=== PATIENT | male | born 1990 | race Caucasian/White ===

== ENCOUNTER 2017-01-12 21:11 | Inpatient (IN) ==
[2017-01-12 21:57] LABS: Bilirubin,Urine Negative (Negative); Blood,Urine Negative (Negative); Clarity,Urine Cloudy (Clear); Color,Urine Yellow (Yellow); Glucose,Urine (UA) Normal (Normal); Ketones,Urine Negative (Negative); Leukocyte Esterase,Urine Negative (Negative); Nitrite,Urine Negative (Negative); PH,Urine 5.5 pH Units (5.0-8.0); Protein,Urine 30 mg/dL (Neg-Trace); Specific Gravity,Urine 1.026 (1.010-1.025); Urobilinogen,Urine Normal (Normal)
[2017-01-12 21:57] LABS: Basophils # 0.1 K/mcL (0.0-0.2); Basophils % 0.6 %; Eosinophils # 0.6 K/mcL (0.0-0.6); Eosinophils % 7.7 %; Hematocrit 45.9 % (37.5-50.1); Hemoglobin 15.5 g/dL (12.9-16.9); Immature Granulocytes % 0.2 % (0-4); Lymphocytes # 2.8 K/mcL (0.6-4.6); Lymphocytes % 33.4 %; Mean Corpuscular HGB Conc 33.8 g/dL (31.6-35.5); Mean Corpuscular Hemoglobin 29.4 pg (28.0-33.3); Mean Corpuscular Volume 87.1 fL (83.0-100.0); Mean Platelet Volume 9.1 fL (9.4-12.4); Monocytes # 0.7 K/mcL (0.0-1.3); Monocytes % 7.9 %; Neutrophils # 4.2 K/mcL (1.6-8.9); Platelet Count 271 K/mcL (140-400); Red Blood Count 5.27 M/mcL (4.19-5.50); Red Cell Distribution Width 11.8 % (11.5-14.5); Segmented Neutrophils % 50.2 %
[2017-01-12 21:59] LABS: Bacteria,Urine None Seen per hpf (None-Few); Hyaline Casts,Urine None Seen per lpf (None-Few); RBC,Urine 0-3 per hpf (0-3); Squamous Epithelial Cell,Urine Many per lpf (None-Few)
[2017-01-12 22:10] LABS: Amphetamine Screen,Urine Negative ng/mL (Cutoff=1000); Barbiturate Screen,Urine Negative ng/mL (Cutoff=200); Benzodiazepines Screen,Urine Negative ng/mL (Cutoff=200); Cannabinoid Screen,Urine Positive ng/mL (Cutoff = 50); Cocaine Screen,Urine Negative ng/mL (Cutoff= 300); Mucus,Urine Moderate (Few); Opiate Screen,Urine Negative ng/mL (Cutoff=300); Phencyclidine Screen,Urine Negative ng/mL (Cutoff=25)
[2017-01-12 22:13] LABS: Sperm,Urine Present
[2017-01-12 22:16] LABS: BUN/Creatinine Ratio 16 (6-26); Blood Urea Nitrogen 13 mg/dL (8-26); Calcium 9.4 mg/dL (8.6-10.8); Carbon Dioxide 27 mEq/L (19-29); Chloride 104 mEq/L (98-109); Glucose 91 mg/dL (70-99); Osmolality,Calculated 292 (280-300); Potassium 3.6 mEq/L (3.5-4.5); Sodium 141 mEq/L (136-145); eGFR For African Americans > 60 (> 60); eGFR For Non-African Americans > 60 (> 60)
[2017-01-12 22:17] LABS: Acetaminophen < 1.0 mcg/mL (10-30); Ethanol < 10 mg/dL (0-10); Salicylate < 5.0 mg/dL (15-30)
--- NOTE | 2017-01-12 23:07 | Emergency Department Note ---
Disposition Clinical Impression: Suicidal ideation Depression Qualifiers: Depression Type: unspecified Qualified Code(s): F32.9 - Major depressive disorder, single episode, unspecified Disposition: Admitted As Inpatient Condition: Fair Psych HPI - General Chief Complaint: ED Psychiatric Symptoms Stated Complaint: SI Time Seen by Provider: 01/12/17 23:01 Source: patient Mode of arrival: private vehicle Limitations: no limitations Nursing Notes Reviewed: Yes Vital Signs Reviewed: Yes - History of Present Illness HPI Narrative: 26-year-old male presents to the emergency department with suicidal and homicidal ideation. Patient also describes depression. Patient states that he has several plans on her himself and others. He denies any recent head injury or trauma. He denies any new medications. Patient has had similar episodes and thought processes in the past. Pt complaint: suicidal ideation If medical clearance, reason: psychiatric condition Onset (ago): day(s) Duration: constant, getting worse History of similar episodes: Yes Improves with: none Worsens with: none Associated Psychiatric Symptoms: suicidal ideation, homicidal ideation, racing thoughts Associated symptoms: Reports: denies other symptoms Traumatic symptoms: denies traumatic injury Treatments prior to arrival: none Self harm or harm to others: admits thoughts of self harm, has plan - Related Data Allergies Allergy/AdvReac Type Severity Reaction Status Date / Time No Known Allergies Allergy Verified 01/12/17 21:21 All systems ED: reviewed and negative except as stated. Constitutional: Denies: fever, chills Cardiovascular: Denies: chest pain Respiratory: Denies: dyspnea Gastrointestinal: Denies: abdominal pain, nausea, vomiting Musculoskeletal: Denies: back pain, neck pain Integumentary: Denies: rash, abrasion, lesions Neurological: Denies: headache Psychiatric: Reports: anxiety, depression, suicidal thoughts, homicidal thoughts. Denies: auditory hallucinations, visual hallucinations Past Medical History - Past Medical History Attestation: Yes The following information was validated with the patient. Source: patient, nursing notes reviewed Medical history: Reports: asthma, other Psychiatric history: Reports: anxiety, depression - Social History Smoking Status: Current some day smoker Smokeless Tobacco Status: No Alcohol use: Reports: occasionally Drug use: Reports: marijuana Physical Exam - General Limitations: no limitations General appearance: alert, in no apparent distress - Head Head exam: atraumatic, normocephalic, normal inspection - Eye Eye exam: Present: normal appearance, PERRL - Neck Neck exam: Present: normal inspection, full ROM, trachea midline - Chest Chest inspection: Present: normal inspection, symmetric chest wall rise - Respiratory Respiratory exam: Present: normal lung sounds bilaterally. Absent: respiratory distress - Cardiovascular Cardiovascular exam: Present: regular rate, normal rhythm, normal heart sounds - Extremities Exam Extremities exam: Present: normal inspection, full ROM. Absent: tenderness, pedal edema - Expanded Lower Extremity Exam Gait: observed and normal - Back Exam Back exam: Present: normal inspection, full ROM. Absent: tenderness - Neurological Exam Neurological exam: Present: alert, oriented X3 - Psychiatric Psychiatric exam: Present: depressed, anxious, flat affect, homicidal ideation, suicidal ideation - Expanded Psychiatric Exam Expanded psych exam: Present: poor eye contact - Skin Skin exam: Present: warm, dry, intact, normal color Course - Reevaluation(s) Reevaluation #1: Patient medically cleared for psychiatric evaluation. No acute distress, resting comfortably on the cot. Time: 23:07 Vital Signs Temperature 98.3 F 01/12/17 21:22 Pulse Rate 89 01/12/17 21:22 Respiratory Rate 16 01/12/17 21:22 Blood Pressure 127/87 01/12/17 21:22 O2 Sat by Pulse Oximetry 100 01/12/17 21:22 Temperature 98.6 F 01/13/17 01:18 Pulse Rate 81 01/13/17 01:18 Respiratory Rate 16 01/13/17 01:18 Blood Pressure 121/85 01/13/17 01:18 O2 Sat by Pulse Oximetry 100 01/12/17 21:22 Oxygen Delivery Oxygen Delivery Room Air Psych - Lab Data Lab results reviewed: Yes I reviewed the patient's lab results. Result diagrams: 01/12/17 21:45 01/12/17 21:45 Lab Results 01/12/17 01/12/17 01/12/17 Range/Units 21:36 21:36 21:45 WBC 8.4 (4.3-11.1) K/mcL RBC 5.27 (4.19-5.50) M/mcL Hgb 15.5 (12.9-16.9) g/dL Hct 45.9 (37.5-50.1) % MCV 87.1 (83.0-100.0) fL MCH 29.4 (28.0-33.3) pg MCHC 33.8 (31.6-35.5) g/dL RDW 11.8 (11.5-14.5) % Plt Count 271 (140-400) K/mcL MPV 9.1 L (9.4-12.4) fL Immature Gran % 0.2 (0-4) % Seg Neutrophils % 50.2 % Lymphocytes % 33.4 % Monocytes % 7.9 % Eosinophils % 7.7 % Basophils % 0.6 % Neutrophils # 4.2 (1.6-8.9) K/mcL Lymphocytes # 2.8 (0.6-4.6) K/mcL Monocytes # 0.7 (0.0-1.3) K/mcL Eosinophils # 0.6 (0.0-0.6) K/mcL Basophils # 0.1 (0.0-0.2) K/mcL Sodium (136-145) mEq/L Potassium (3.5-4.5) mEq/L Chloride (98-109) mEq/L Carbon Dioxide (19-29) mEq/L BUN (8-26) mg/dL Creatinine (0.72-1.25) mg/dL Est GFR ( Amer) (> 60) Est GFR (Non-Af Amer) (> 60) BUN/Creatinine Ratio (6-26) Glucose (70-99) mg/dL Calculated Osmolality (280-300) Calcium (8.6-10.8) mg/dL Urine Color Yellow (Yellow) Urine Clarity Cloudy A (Clear) Urine pH 5.5 (5.0-8.0) pH Units Ur Specific [place] 1.026 H (1.010-1.025) Urine Protein 30 H (Neg-Trace) mg/dL Urine Glucose (UA) Normal (Normal) mg/dL Urine Ketones Negative (Negative) mg/dL Urine Blood Negative (Negative) Urine Nitrite Negative (Negative) Urine Bilirubin Negative (Negative) Urine Urobilinogen Normal (Normal) mg/dL Ur Leukocyte Esterase Negative (Negative) Urine Microscopic RBC 0-3 (0-3) per hpf Urine Microscopic WBC 5-15 H (0-3) per hpf Ur Squamous Epith Cells Many H (None-Few) per lpf Urine Bacteria None Seen (None-Few) per hpf Hyaline Casts None Seen (None-Few) per lpf Urine Mucus Moderate H (Few) Urine Yeast Test Not Performed Urine Sperm Present Salicylates (15-30) mg/dL Urine Opiates Screen Negative (Xhaexo=219) ng/mL Acetaminophen (10-30) mcg/mL Ur Barbiturates Screen Negative (Llszcp=645) ng/mL Ur Phencyclidine Scrn Negative (Cutoff=25) ng/mL Ur Amphetamines Screen Negative (Asagag=6834) ng/mL U Benzodiazepines Scrn Negative (Siwpfa=221) ng/mL Urine Cocaine Screen Negative (Cutoff= 300) ng/mL U Marijuana (THC) Screen Positive H (Cutoff = 50) ng/mL Ethyl Alcohol (0-10) mg/dL 01/12/17 Range/Units 21:45 WBC (4.3-11.1) K/mcL RBC (4.19-5.50) M/mcL Hgb (12.9-16.9) g/dL Hct (37.5-50.1) % MCV (83.0-100.0) fL MCH (28.0-33.3) pg MCHC (31.6-35.5) g/dL RDW (11.5-14.5) % Plt Count (140-400) K/mcL MPV (9.4-12.4) fL Immature Gran % (0-4) % Seg Neutrophils % % Lymphocytes % % Monocytes % % Eosinophils % % Basophils % % Neutrophils # (1.6-8.9) K/mcL Lymphocytes # (0.6-4.6) K/mcL Monocytes # (0.0-1.3) K/mcL Eosinophils # (0.0-0.6) K/mcL Basophils # (0.0-0.2) K/mcL Sodium 141 (136-145) mEq/L Potassium 3.6 (3.5-4.5) mEq/L Chloride 104 (98-109) mEq/L Carbon Dioxide 27 (19-29) mEq/L BUN 13 (8-26) mg/dL Creatinine 0.81 (0.72-1.25) mg/dL Est GFR ( Amer) > 60 (> 60) Est GFR (Non-Af Amer) > 60 (> 60) BUN/Creatinine Ratio 16 (6-26) Glucose 91 (70-99) mg/dL Calculated Osmolality 292 (280-300) Calcium 9.4 (8.6-10.8) mg/dL Urine Color (Yellow) Urine Clarity (Clear) Urine pH (5.0-8.0) pH Units Ur Specific [place] (1.010-1.025) Urine Protein (Neg-Trace) mg/dL Urine Glucose (UA) (Normal) mg/dL Urine Ketones (Negative) mg/dL Urine Blood (Negative) Urine Nitrite (Negative) Urine Bilirubin (Negative) Urine Urobilinogen (Normal) mg/dL Ur Leukocyte Esterase (Negative) Urine Microscopic RBC (0-3) per hpf Urine Microscopic WBC (0-3) per hpf Ur Squamous Epith Cells (None-Few) per lpf Urine Bacteria (None-Few) per hpf Hyaline Casts (None-Few) per lpf Urine Mucus (Few) Urine Yeast Urine Sperm Salicylates < 5.0 L (15-30) mg/dL Urine Opiates Screen (Pspuft=785) ng/mL Acetaminophen < 1.0 L (10-30) mcg/mL Ur Barbiturates Screen (Pkzlyk=368) ng/mL Ur Phencyclidine Scrn (Cutoff=25) ng/mL Ur Amphetamines Screen (Gcuswx=3567) ng/mL U Benzodiazepines Scrn (Afrmms=033) ng/mL Urine Cocaine Screen (Cutoff= 300) ng/mL U Marijuana (THC) Screen (Cutoff = 50) ng/mL Ethyl Alcohol < 10 (0-10) mg/dL Psychiatric Medical Clearance - Medical Clearance Checklist Medical History: No Social History Section defined Current Vitals: Last Vital Signs Temp 98.6 F 01/13/17 01:18 Pulse 81 01/13/17 01:18 Resp 16 01/13/17 01:18 BP 121/85 01/13/17 01:18 Pulse Ox 100 01/12/17 21:22 Psychiatric Lab Panel: Drug Levels and Toxicity 01/12/17 01/12/17 21:36 21:45 Urine Opiates Screen Negative Acetaminophen < 1.0 L Ur Barbiturates Screen Negative Ur Phencyclidine Scrn Negative Ur Amphetamines Screen Negative U Benzodiazepines Scrn Negative Urine Cocaine Screen Negative U Marijuana (THC) Screen Positive H Ethyl Alcohol < 10 Abnormal Labs: Abnormal lab results MPV 9.1 fL (9.4-12.4) L 01/12/17 21:45 Urine Clarity Cloudy (Clear) A 01/12/17 21:36 Ur Specific [place] 1.026 (1.010-1.025) H 01/12/17 21:36 Urine Protein 30 mg/dL (Neg-Trace) H 01/12/17 21:36 Urine Microscopic WBC 5-15 per hpf (0-3) H 01/12/17 21:36 Ur Squamous Epith Cells Many per lpf (None-Few) H 01/12/17 21:36 Urine Mucus Moderate (Few) H 01/12/17 21:36 Salicylates < 5.0 mg/dL (15-30) L 01/12/17 21:45 Acetaminophen < 1.0 mcg/mL (10-30) L 01/12/17 21:45 U Marijuana (THC) Screen Positive ng/mL (Cutoff = 50) H 01/12/17 21:36 Attestation Statement - Attestation Attestation: For this encounter, I have reviewed the resident, MANUFACTURER'S REPRESENTATIVE, or PA documentation, treatment plan, and medical decision making; and I have had face to face time with this patient. 26-year-old male presents with concerns of suicidal ideation. Patient has a history of similar presentations in the past. Patient has a history of multiple times in the past. Patient was medically cleared and was seen by behavioral health. The recommended admission for further care and evaluation.
[2017-01-13] MEDS ORDERED: Ibuprofen 400 MG TABLET PO PRN (00:48)
[2017-01-13] MEDS ORDERED: *HR* LORazepam 1 MG TABLET PO PRN (00:48)
[2017-01-13] MEDS ORDERED: Haloperidol Lactate 5 MG/ML VIAL IM PRN (00:48)
[2017-01-13] MEDS ORDERED: *HR* LORazepam 2 MG/ML VIAL IM PRN (00:48)
[2017-01-13] MEDS ORDERED: MOM Conc 10 ML UD.LIQ PO PRN (01:09)
[2017-01-13] MEDS ORDERED: traZODone 50 MG TABLET PO PRN (01:09)
[2017-01-13] MEDS ORDERED: hydrOXYzine pamoate 25 MG CAPSULE PO PRN (01:09)
[2017-01-13] MEDS ORDERED: Mag Hydrox/Al Hydrox/Simeth 30 ML UDC PO PRN (01:09)
--- NOTE | 2017-01-13 10:34 | Psychiatry History & Physical ---
Date of Encounter: 01/13/17 Time of Encounter: 10:26 History of Present Illness Patient Stated Chief Complaint: suicidal Medicare Admission Attestation: For traditional Medicare patients the provided hospital inpatient services are reasonable and necessary and in the case of services not specified as inpatient -only under 42 CFR 419.22 (n), that they are appropriately provided as inpatient services in accordance 42 CFR 412.3. For Critical Access Hospital the patient may reasonably be expected to be discharged or transferred to a hospital within 96 hours after admission to the Critical Access Hospital. Admitted From: Emergency Dept History of Present Illness: Mr. Martinez is a 26 year old male admitted to the emergency room for suicidal ideation. Patient had no previous psychiatric history of treatment. Female friend left him for another man and he felt devastated and suicidal and overwhelmed. His tox screen is positive marijuana that he uses regularly. He is not interested in treatment was antidepressants for therapy he is suspicious none trusting. Guarded and evasive. He stated that he was depressed as a child and was seen by school counseling and at one point he was given antidepressants when he was 18 but he did not like the medication. Past Med Surg Social Fam HX - Past Medical History Medical history: asthma, other - Past Psychiatric History Psychiatric history: Reports: no psych history - Social History Smoking Status: Current some day smoker Smokeless Tobacco Status: No Alcohol use: occasionally Drug use: marijuana Medications & Allergies Allergies No Known Allergies Allergy (Verified 01/12/17 21:21) Review of Systems Psychiatric: Reports: suicidal ideation, hopelessness Mental Status Exam Patient orientation: Yes Person, Yes Time, Yes Place Level of alertness: Alert Patient appearance: Appropriate, Well Groomed, Thin Behavior: calm, nervous, anxious, guarded, suspicious Psychomotor activity: Slowed Eye contact: Avoids Eye Contact Mood description: Depressed, Anxious, Irritable Affect description: constricted, blunted Speech pattern: Normal rate, Normal rhythm, Normal tone Speech volume: Normal Thought process: Tangential, Disorganized, Evasive Thought content: Yes Suicidal ideation, Yes Paranoid delusion Perceptual disturbances: No Auditory hallucinations, No Visual hallucinations Attention span: Capable of Focused Attention Memory description: Grossly Intact Patient reliability: Reliable Historian Intelligence estimate: Average Judgment: Limited Insight: Partial Results - Vital Signs Vital signs: Temp Pulse Resp BP Pulse Ox 98.6 F 81 16 121/85 100 01/13/17 01:18 01/13/17 01:18 01/13/17 01:18 01/13/17 01:18 01/12/17 21:22 - Labs Labs: Laboratory Last Values WBC 8.4 K/mcL (4.3-11.1) 01/12/17 21:45 RBC 5.27 M/mcL (4.19-5.50) 01/12/17 21:45 Hgb 15.5 g/dL (12.9-16.9) 01/12/17 21:45 Hct 45.9 % (37.5-50.1) 01/12/17 21:45 MCV 87.1 fL (83.0-100.0) 01/12/17 21:45 MCH 29.4 pg (28.0-33.3) 01/12/17 21:45 MCHC 33.8 g/dL (31.6-35.5) 01/12/17 21:45 RDW 11.8 % (11.5-14.5) 01/12/17 21:45 Plt Count 271 K/mcL (140-400) 01/12/17 21:45 MPV 9.1 fL (9.4-12.4) L 01/12/17 21:45 Immature Gran % 0.2 % (0-4) 01/12/17 21:45 Seg Neutrophils % 50.2 % 01/12/17 21:45 Lymphocytes % 33.4 % 01/12/17 21:45 Monocytes % 7.9 % 01/12/17 21:45 Eosinophils % 7.7 % 01/12/17 21:45 Basophils % 0.6 % 01/12/17 21:45 Neutrophils # 4.2 K/mcL (1.6-8.9) 01/12/17 21:45 Lymphocytes # 2.8 K/mcL (0.6-4.6) 01/12/17 21:45 Monocytes # 0.7 K/mcL (0.0-1.3) 01/12/17 21:45 Eosinophils # 0.6 K/mcL (0.0-0.6) 01/12/17 21:45 Basophils # 0.1 K/mcL (0.0-0.2) 01/12/17 21:45 Sodium 141 mEq/L (136-145) 01/12/17 21:45 Potassium 3.6 mEq/L (3.5-4.5) 01/12/17 21:45 Chloride 104 mEq/L (98-109) 01/12/17 21:45 Carbon Dioxide 27 mEq/L (19-29) 01/12/17 21:45 BUN 13 mg/dL (8-26) 01/12/17 21:45 Creatinine 0.81 mg/dL (0.72-1.25) 01/12/17 21:45 Est GFR ( Amer) > 60 (> 60) 01/12/17 21:45 Est GFR (Non-Af Amer) > 60 (> 60) 01/12/17 21:45 BUN/Creatinine Ratio 16 (6-26) 01/12/17 21:45 Glucose 91 mg/dL (70-99) 01/12/17 21:45 Calculated Osmolality 292 (280-300) 01/12/17 21:45 Calcium 9.4 mg/dL (8.6-10.8) 01/12/17 21:45 Urine Color Yellow (Yellow) 01/12/17 21:36 Urine Clarity Cloudy (Clear) A 01/12/17 21:36 Urine pH 5.5 pH Units (5.0-8.0) 01/12/17 21:36 Ur Specific [place] 1.026 (1.010-1.025) H 01/12/17 21:36 Urine Protein 30 mg/dL (Neg-Trace) H 01/12/17 21:36 Urine Glucose (UA) Normal mg/dL (Normal) 01/12/17 21:36 Urine Ketones Negative mg/dL (Negative) 01/12/17 21:36 Urine Blood Negative (Negative) 01/12/17 21:36 Urine Nitrite Negative (Negative) 01/12/17 21:36 Urine Bilirubin Negative (Negative) 01/12/17 21:36 Urine Urobilinogen Normal mg/dL (Normal) 01/12/17 21:36 Ur Leukocyte Esterase Negative (Negative) 01/12/17 21:36 Urine Microscopic RBC 0-3 per hpf (0-3) 01/12/17 21:36 Urine Microscopic WBC 5-15 per hpf (0-3) H 01/12/17 21:36 Ur Squamous Epith Cells Many per lpf (None-Few) H 01/12/17 21:36 Urine Bacteria None Seen per hpf (None-Few) 01/12/17 21:36 Hyaline Casts None Seen per lpf (None-Few) 01/12/17 21:36 Urine Mucus Moderate (Few) H 01/12/17 21:36 Urine Yeast Test Not Performed 01/12/17 21:36 Urine Sperm Present 01/12/17 21:36 Salicylates < 5.0 mg/dL (15-30) L 01/12/17 21:45 Urine Opiates Screen Negative ng/mL (Jbyday=648) 01/12/17 21:36 Acetaminophen < 1.0 mcg/mL (10-30) L 01/12/17 21:45 Ur Barbiturates Screen Negative ng/mL (Kdjthk=256) 01/12/17 21:36 Ur Phencyclidine Scrn Negative ng/mL (Cutoff=25) 01/12/17 21:36 Ur Amphetamines Screen Negative ng/mL (Ovbthh=1236) 01/12/17 21:36 U Benzodiazepines Scrn Negative ng/mL (Pdmgnn=441) 01/12/17 21:36 Urine Cocaine Screen Negative ng/mL (Cutoff= 300) 01/12/17 21:36 U Marijuana (THC) Screen Positive ng/mL (Cutoff = 50) H 01/12/17 21:36 Ethyl Alcohol < 10 mg/dL (0-10) 01/12/17 21:45 Assessment and Plan (1) Depression Current visit: Yes Status: Acute Plan: Admit inpatient for safety and stabilization, Close observation, Suicide Precautions per unit protocol, Encourage participation in unit milieu, Group Therapy, Monitor sleep, Monitor appetite Additional Plan: We will start patient on Effexor XR 75 mg daily benefits and side effects were discussed. Risks, benefits, side effects, alternatives discussed w/pt: Yes Patient agreeable to treatment: Yes Estimated Length of Stay (Days): 5 Qualifiers: Depression Type: reactive depression Qualified Code(s): F32.9 - Major depressive disorder, single episode, unspecified (2) Mild tetrahydrocannabinol (THC) abuse Current visit: Yes Status: Acute Plan: Admit inpatient for safety and stabilization, Close observation, Suicide Precautions per unit protocol, Encourage participation in unit milieu, Group Therapy, Monitor sleep, Monitor appetite Risks, benefits, side effects, alternatives discussed w/pt: Yes Patient agreeable to treatment: Yes
[2017-01-13] MEDS: Venlafaxine XR (24 HR) 75 MG CAP.ER.24H PO SCH (14:02)
[2017-01-14] MEDS: Venlafaxine XR (24 HR) 75 MG CAP.ER.24H PO SCH (09:15)
--- NOTE | 2017-01-14 12:31 | Psychiatry Progress Note ---
Date of Encounter: 01/14/17 Time of Encounter: 12:30 Subjective Interval history: Patient is here for follow-up. Nursing staff reports he is compliant with medication and spend most of the time sleeping and his room and did not participate in activities. He reports no suicidal ideation. Abdomen discussion was held regarding hopelessness and have him more options to be hopeful he seemed to understand the concept and open to try to come out of his isolation and rigid understanding and pessimism he will leave the therapy is important for him and he will try to set up follow-up appointments to continue therapy is tolerating the medication and denied problems or side effects. Review of Systems Psychiatric: Reports: depression, hopelessness Objective: Exam Patient orientation: Yes Person, Yes Time, Yes Place Level of alertness: Alert Patient appearance: Appropriate, Well Groomed, Thin Behavior: calm, nervous, anxious, guarded, suspicious Psychomotor activity: Slowed Eye contact: Avoids Eye Contact Mood description: Depressed, Anxious, Irritable Affect description: constricted, blunted Speech pattern: Normal rate, Normal rhythm, Normal tone Speech volume: Normal Thought process: Tangential, Disorganized, Evasive Thought content: Yes Paranoid delusion Perceptual disturbances: No Auditory hallucinations, No Visual hallucinations Judgment: Limited Insight: Partial Results - Vital Signs Vital Signs: Temp Pulse Resp BP Pulse Ox 97.7 F 66 16 141/86 100 01/14/17 09:00 01/14/17 09:00 01/14/17 09:00 01/14/17 09:00 01/12/17 21:22 Assessment and Plan (1) Depression Current visit: Yes Status: Acute Risks, benefits, side effects, alternatives discussed w/pt: Yes Patient agreeable to treatment: Yes Qualifiers: Depression Type: reactive depression Qualified Code(s): F32.9 - Major depressive disorder, single episode, unspecified (2) Mild tetrahydrocannabinol (THC) abuse Current visit: Yes Status: Acute Risks, benefits, side effects, alternatives discussed w/pt: Yes Patient agreeable to treatment: Yes Consult Discharge Plan - Plan Referrals: [facility] [place] [Outside] - 02/02/17 10:15 am (The above appointment is with Dr. Wiley. This appointment is to establish you with a primary care provider. Please arrive 15 minutes early for your new patient appointment, and bring the following items with you: insurance card (if you do not have insurance bring proof of income to apply for the sliding fee scale), photo ID, and any medication you take in the original bottles. If you are unable to bring these items, your appointment will be rescheduled. If you are unable to keep this appointment, 24 hour business notice of cancellation is expected. If you miss your new patient appointment, you cannot be re-scheduled in this practice for 3 months. This practice does not prescribe narcotics or see [facility] benefit recipients. ) [facility] [Outside]
[2017-01-15] MEDS: Venlafaxine XR (24 HR) 75 MG CAP.ER.24H PO SCH (08:41)
--- NOTE | 2017-01-15 12:52 | Psychiatry Progress Note ---
Date of Encounter: 01/15/17 Time of Encounter: 12:48 Subjective Interval history: Patient seen for follow-up. Nursing staff reports he is participating in groups but tended to isolate himself. He is tolerating the medication was any problems. He is convinced that he will need follow-up counseling and medication. He is showing improved insight into his depression and that his responsibility to get help and not to avoid social situation. He denies suicidal ideation and interacting appropriately with peers and staff. Review of Systems Psychiatric: Reports: depression, anxiety Objective: Exam Patient orientation: Yes Person, Yes Time, Yes Place Level of alertness: Alert Patient appearance: Appropriate, Well Groomed, Thin Behavior: calm, nervous, anxious, guarded, suspicious Psychomotor activity: Normal Eye contact: Avoids Eye Contact Mood description: Depressed, Anxious, Irritable Affect description: constricted, blunted Speech pattern: Normal rate, Normal rhythm, Normal tone Speech volume: Normal Thought process: Tangential, Disorganized, Evasive Thought content: Yes Intact, No Suicidal ideation, No Homicidal ideation, Yes Paranoid delusion, Yes Obsessive thoughts Perceptual disturbances: No Auditory hallucinations, No Visual hallucinations Judgment: Limited Insight: Partial Results - Vital Signs Vital Signs: Temp Pulse Resp BP Pulse Ox 97.9 F 66 16 125/84 100 01/15/17 09:00 01/15/17 09:00 01/15/17 09:00 01/15/17 09:00 01/12/17 21:22 Assessment and Plan (1) Depression Current visit: Yes Status: Acute Plan: Continue hospitalization, Close observation, Suicide Precautions per unit protocol, Encourage participation in unit milieu, Group Therapy, Monitor sleep, Monitor appetite Risks, benefits, side effects, alternatives discussed w/pt: Yes Patient agreeable to treatment: Yes Qualifiers: Depression Type: reactive depression Qualified Code(s): F32.9 - Major depressive disorder, single episode, unspecified (2) Mild tetrahydrocannabinol (THC) abuse Current visit: Yes Status: Acute Plan: Continue hospitalization, Close observation, Suicide Precautions per unit protocol, Encourage participation in unit milieu, Group Therapy, Monitor sleep, Monitor appetite Risks, benefits, side effects, alternatives discussed w/pt: Yes Patient agreeable to treatment: Yes Consult Discharge Plan - Plan Referrals: [facility] [place] [Outside] - 02/02/17 10:15 am (The above appointment is with Dr. Wiley. This appointment is to establish you with a primary care provider. Please arrive 15 minutes early for your new patient appointment, and bring the following items with you: insurance card (if you do not have insurance bring proof of income to apply for the sliding fee scale), photo ID, and any medication you take in the original bottles. If you are unable to bring these items, your appointment will be rescheduled. If you are unable to keep this appointment, 24 hour business notice of cancellation is expected. If you miss your new patient appointment, you cannot be re-scheduled in this practice for 3 months. This practice does not prescribe narcotics or see [facility] benefit recipients. ) [facility] [Outside] (To start counseling services, you may walk in Thursday through from 8:00am - 4:00pm, or on Fridays from 8:00am - noon. Also, you will see Rukhsana Stanford, psychiatric prescriber, in this same office on 02/27/2017 at 9:30am. Please arrive 15 minutes early for this appointment to complete paperwork. You may contact the office regularly to check for cancellations that may allow you to be seen sooner by the psychiatric prescriber.)
[2017-01-16] MEDS: Venlafaxine XR (24 HR) 75 MG CAP.ER.24H PO SCH (08:28)
[2017-01-16 09:10] VITALS: BP 126/79
--- NOTE | 2017-01-16 10:23 | Discharge Summary ---
Date of Encounter: 01/16/17 Time of Encounter: 10:21 Diagnosis - Discharge Diagnosis (1) Depression Status: Acute Qualifiers: Depression Type: reactive depression Qualified Code(s): F32.9 - Major depressive disorder, single episode, unspecified (2) Mild tetrahydrocannabinol (THC) abuse Status: Acute Medications - Discharge Medications Prescriptions: Venlafaxine XR (24 HR) [Effexor XR] 75 mg PO DAILY #30 cap.er.24h Venlafaxine XR (24 HR) [Effexor XR] 75 mg PO DAILY #30 cap.er.24h 01/16/17 [Rx] Allergies No Known Allergies Allergy (Verified 01/12/17 21:21) Provider Date of admission: 01/15/17 12:56 Primary care physician: PCP NO Discharging clinician: Gutierrez Burnham Assessment and Plan - Patient/Caregiver Discharge Instructions Activity: resume usual activities as tolerated Diet: regular diet - Follow up Plan Follow up with: [facility] [place] [Outside] - 02/02/17 10:15 am (The above appointment is with Dr. Wiley. This appointment is to establish you with a primary care provider. Please arrive 15 minutes early for your new patient appointment, and bring the following items with you: insurance card (if you do not have insurance bring proof of income to apply for the sliding fee scale), photo ID, and any medication you take in the original bottles. If you are unable to bring these items, your appointment will be rescheduled. If you are unable to keep this appointment, 24 hour business notice of cancellation is expected. If you miss your new patient appointment, you cannot be re-scheduled in this practice for 3 months. This practice does not prescribe narcotics or see [facility] benefit recipients. ) [facility] [Outside] (To start counseling services, you may walk in Thursday through from 8:00am - 4:00pm, or on Fridays from 8:00am - noon. Also, you will see Rukhsana Stanford, psychiatric prescriber, in this same office on 02/27/2017 at 9:30am. Please arrive 15 minutes early for this appointment to complete paperwork. You may contact the office regularly to check for cancellations that may allow you to be seen sooner by the psychiatric prescriber.) Functional capacity at discharge: independent ambulation Overall status at discharge: Stable Disposition: Home, Self-Care Hospital Course Hospital course: Mr. Martinez is a 26 year old male admitted from the emergency room for depression and suicidal ideation. For details of admission please see H&P On the units patient was started on Effexor XL 75 mg daily, he tolerated the medication without side effects, and reported improved sleep and energy. Patient was preoccupied with his obsessive thoughts and negative perception of self and social isolation. Lipitor he participated and activities and was able to interact with staff and peers. He showed improved insight and he was actively ends asking question and trying to help himself. Prior to discharge he was medically stable he was not suicidal and he was looking forward to continue follow-up treatment and medication. - Time Spent with Patient Total time spent providing and/or coordinating discharge services: Less than 30 minutes Quality - Multiple Antipsychotics Patient discharged on 2 or more antipsychotic medications: No Procedures - Procedures Procedures: Medication Management, Crisis Stabilization, Supportive Therapy, Group Therapy, Psychoeducational Therapy Mental Status Exam - Mental Status Exam Patient orientation: Yes Person, Yes Time, Yes Place Level of alertness: Alert Patient appearance: Appropriate, Well Groomed, Thin Behavior: calm, nervous, anxious, guarded, suspicious Psychomotor activity: Normal Eye contact: Maintains Eye Contact Mood description: Euthymic/stable, Anxious, Irritable Affect description: constricted, blunted Speech pattern: Normal rate, Normal rhythm, Normal tone Speech Volume: Normal Thought process: Linear, Tangential Thought Content: Yes Intact, No Suicidal ideation, No Homicidal ideation, Yes Paranoid delusion, Yes Obsessive thoughts Perceptual Disturbances: No Auditory hallucinations, No Visual hallucinations Judgment: Fair Insight: Partial
== END 2017-01-16 12:00 | disposition home or self-care (01) | DRG 754 ==
LOC: EMEROO 21:11 → INTOOBSV 01-13 00:41 → 1ANU 01-13 00:41
PROVIDERS: ADMIT Psychiatry & Neurology Psychiatry; ATTEND Psychiatry & Neurology Psychiatry